=== PATIENT | female | born 1980 | race Caucasian/White ===

== ENCOUNTER 2016-07-17 13:42 | Emergency (ER) | payer OTHER ==
[2016-07-17] MEDS ORDERED: IBUPROFEN 800 MG TABLET ONE (14:34)
[2016-07-17] MEDS ORDERED: HYDROCODONE/ACETAMINOPHEN 5/325MG TABLET ONE (14:34)
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
== END 2016-07-17 16:15 | disposition home or self-care (01) ==
LOC: ED 13:42
DX: S20.219A Contusion of unspecified front wall of thorax, initial encounter (principal); S80.01XA Contusion of right knee, initial encounter; M54.2 Cervicalgia; J45.909 Unspecified asthma, uncomplicated; F17.210 Nicotine dependence, cigarettes, uncomplicated; V43.52XA Car driver injured in collision with other type car in traffic accident, initial encounter; Y92.410 Unspecified street and highway as the place of occurrence of the external cause
CPT/HCPCS: 71020; 73564; 99283 ×2; A9270 ×2